=== PATIENT | female | born 1940 | race Caucasian/White ===

== ENCOUNTER → 2020-09-16 | Outpatient (CLI) | payer OTHER, MEDICARE ==
[~2020-09-16] MED LIST: AMLODIPINE BESY10 MG; BENICAR20 MG PO; CALCIUM PO; CIPROFLOXACIN500 M1 PO; COMPLEX B30 ML; COQ-10100 MG; FISHOIL PO; FLUOXETINE HCL40 MG; LIPITOR10 MG PO; MACRODANTIN100 MG; MAGNESIUM GLUC250 MG; VITCB500GO PO; ZOCOR 20 MG TAB20 M1; ZOFRAN ODT4 MG PO
== END ==
LOC: SJCVCIMAG 08:55
PROVIDERS: ATTEND Internal Medicine
DX: I08.8 Other rheumatic multiple valve diseases (principal); R94.31 Abnormal electrocardiogram [ECG] [EKG]; I11.9 Hypertensive heart disease without heart failure; I48.21 Permanent atrial fibrillation; E78.5 Hyperlipidemia, unspecified; Z79.01 Long term (current) use of anticoagulants; Z79.899 Other long term (current) drug therapy

== ENCOUNTER → 2021-04-07 | Outpatient (CLI) | payer OTHER, MEDICARE | LOC: SJCVC 13:03 | PROVIDERS: ATTEND Internal Medicine | DX: R94.31 Abnormal electrocardiogram [ECG] [EKG] (principal); I48.21 Permanent atrial fibrillation; I35.1 Nonrheumatic aortic (valve) insufficiency; I10 Essential (primary) hypertension; E78.5 Hyperlipidemia, unspecified; E78.00 Pure hypercholesterolemia, unspecified; F32.9 Major depressive disorder, single episode, unspecified; Z79.01 Long term (current) use of anticoagulants; Z86.73 Personal history of transient ischemic attack (TIA), and cerebral infarction without residual deficits; Z79.899 Other long term (current) drug therapy; Z88.1 Allergy status to other antibiotic agents ==